=== PATIENT | female | born 1955 | race Caucasian/White ===

== ENCOUNTER 2022-01-08 14:01 | Inpatient (IN) | payer MEDICAID ==
[~2022-01-08] VITALS: Ht 152.4 cm; Wt 64.1 kg
[2022-01-08] MEDS ORDERED: SODIUM CHLORIDE 0.9% 1,000 ML IV ONE (14:15)
[2022-01-08 14:43] LABS: BASOPHILS % 0.5 % (0.0-2.0); EOSINOPHILS % 0.3 % (0.0-5.0); HEMATOCRIT. 36.7 % (36.0-48.0); HEMOGLOBIN. 11.6 g/dL (12.0-16.0); LYMPHOCYTES % 23.3 % (20.0-50.0); MEAN CORPUSCULAR VOLUME 91.6 fL (81.0-99.0); MEAN PLATELET VOLUME 8.5 fl (7.4-10.4); MONOCYTES % 9.8 % (2.0-8.0); NEUTROPHILS % 66.1 % (40.0-76.0); PLATELET 490 x1000/uL (130-400); RED BLOOD CELL COUNT 4.01 mill/uL (4.2-5.4); RED CELL DISTRIBUTION WIDTH 16.4 % (11.6-14.6)
[2022-01-08 14:45] LABS: BG BASE EXCESS -7.7 mmol/L (-2.0-2.0); BG CARBOXYHEMOGLOBIN 0.3 % (0.5-1.5); BG HCO3 ACT 15.6 mmol/L (22.0-26.0); BG OXYHEMOGLOBIN 95.7 % (94.0-97.0); BG PCO2 25.7 mmHg (35.0-45.0); BG PO2 88.5 mmHg (75.0-100.0); BG SAMPLE SITE RIGHT RADIAL; BG TOTAL HEMOGLOBIN 12.1 g/dL (12.0-18.0); BG VENT MODE ROOM AIR
[2022-01-08 14:49] LABS: CHLORIDE 98 mEq/L (98-107)
[2022-01-08 14:52] LABS: INR 1.1; PROTHROMBIN TIME 11.7 sec (9.6-11.0)
[2022-01-08 15:00] LABS: ETHANOL BLOOD < 10 mg/dL
[2022-01-08] MEDS ORDERED: INSULIN REGULAR (HUMULIN R) 300UNITS/3ML VIAL IV ONE (15:15)
[2022-01-08] MEDS ORDERED: INSULIN REGULAR (DRIP) 100 UNITS in SODIUM CHLORIDE 0.9% 99 ML IV ONE ×2 (15:15→16:30)
[2022-01-08] MEDS ORDERED: ASPIRIN 325MG EC TABLET PO ONE (16:15)
[2022-01-08 21:32] LABS: CHLORIDE 112 mEq/L (98-107)
[2022-01-08] MEDS ORDERED: INSULIN GLARGINE 100 UNITS/ML SUBCUT NR (23:03)
[2022-01-08] MEDS ORDERED: DEXTROSE 50% WATER 50ML SYRINGE IV PRN (23:15)
[2022-01-09 05:40] VITALS: BP 168/66
[2022-01-09] MEDS ORDERED: CLONIDINE 0.1MG TABLET PO PRN (06:45)
[2022-01-09] MEDS: INSULIN LISPRO (MEDIUM DOSE) 100 UNITS/ML SUBCUT SCH ×3 (06:58→21:24)
[2022-01-09] MEDS: BLOOD SUGAR DIAGNOSTIC STRIP TEST SCH ×4 (06:59→21:24)
[2022-01-09 08:23] VITALS: BP 98/63
[2022-01-09] MEDS: AMLODIPINE 10MG TABLET PO SCH (09:00)
[2022-01-09] MEDS ORDERED: LISINOPRIL 20MG TABLET PO SCH (09:00)
[2022-01-09 10:16] LABS: BASOPHILS % 0.5 % (0.0-2.0); HEMATOCRIT. 37.2 % (36.0-48.0); HEMOGLOBIN. 11.7 g/dL (12.0-16.0); MEAN CORPUSCULAR HEMOGLOBIN 29.7 pg (28.0-32.0); MEAN CORPUSCULAR VOLUME 94.2 fL (81.0-99.0); MEAN PLATELET VOLUME 9.5 fl (7.4-10.4); MONOCYTES % 8.8 % (2.0-8.0); NEUTROPHILS % 65.7 % (40.0-76.0); PLATELET 439 x1000/uL (130-400); RED BLOOD CELL COUNT 3.95 mill/uL (4.2-5.4); RED CELL DISTRIBUTION WIDTH 16.6 % (11.6-14.6)
[2022-01-09] MEDS: INSULIN GLARGINE 100 UNITS/ML SUBCUT SCH ×2 (10:19→21:23)
[2022-01-09 10:24] LABS: CHLORIDE 111 mEq/L (98-107)
[2022-01-09 10:30] VITALS: BP 98/63
[2022-01-09 10:33] LABS: HDL CHOLESTEROL 16 mg/dL (40-59); LDL CHOLESTEROL 156 mg/dL (5-100)
[2022-01-09] MEDS ORDERED: GABA300T26 PO (11:46)
[2022-01-09] MEDS ORDERED: FAMO20TA8 PO (11:47)
[2022-01-09] MEDS ORDERED: TOPUD PO (11:48)
[2022-01-09] MEDS ORDERED: BENA5TAB40 PO (11:49)
[2022-01-09] MEDS ORDERED: DOCU-150 PO (11:50)
[2022-01-09] MEDS ORDERED: FERR324T4 MT (11:52)
[2022-01-09 12:10] VITALS: BP 116/74
[2022-01-09] MEDS: ENOXAPARIN 40MG/0.4ML SYR SUBCUT SCH (13:00)
[2022-01-09] MEDS ORDERED: PNEUMOCOCCAL 23-VAL P-SAC VAC 0.5 ML IM ONE (15:00)
[2022-01-09 16:00] VITALS: BP 137/55
[2022-01-09] MEDS: SODIUM CHLORIDE 0.45% 1,000 ML IV SCH (16:12)
[2022-01-09 20:00] VITALS: BP 126/66
[2022-01-09] MEDS: ONDANSETRON HCL 4MG/2ML INJ IV PRN (22:03)
[2022-01-10] VITALS: BP 155/73
[2022-01-10] MEDS: HYDROCODONE/ACETAMINOPHEN 5/325MG TABLET PO PRN ×3 (00:31→20:27)
[2022-01-10 04:00] VITALS: BP 155/73
[2022-01-10] MEDS: SODIUM CHLORIDE 0.45% 1,000 ML IV SCH ×2 (05:18→17:03)
[2022-01-10] MEDS: BLOOD SUGAR DIAGNOSTIC STRIP TEST SCH ×4 (06:34→20:27)
[2022-01-10 07:03] LABS: CHLORIDE 110 mEq/L (98-107)
[2022-01-10] MEDS: INSULIN LISPRO (MEDIUM DOSE) 100 UNITS/ML SUBCUT SCH ×4 (07:50→20:29)
[2022-01-10 08:00] VITALS: BP 147/64
[2022-01-10] MEDS: AMLODIPINE 10MG TABLET PO SCH (08:45)
[2022-01-10] MEDS: ENOXAPARIN 40MG/0.4ML SYR SUBCUT SCH (08:45)
[2022-01-10] MEDS: ONDANSETRON HCL 4MG/2ML INJ IV PRN ×2 (08:45→21:54)
[2022-01-10] MEDS: INSULIN GLARGINE 100 UNITS/ML SUBCUT SCH ×2 (09:09→21:21)
[2022-01-10] MEDS ORDERED: LIP40 MT (11:01)
[2022-01-10] MEDS ORDERED: LANTUSUD SUBCUT (11:01)
[2022-01-10 12:00] VITALS: BP 136/43
[2022-01-10 14:32] LABS: TOTAL IRON BINDING CAPACITY 262 ug/dL (250-450)
[2022-01-10 16:00] VITALS: BP 111/53
[2022-01-10] MEDS: PANTOPRAZOLE SODIUM 40 MG/VIAL IV SCH (16:56)
[2022-01-10 17:56] LABS: FERRITIN 150 ng/mL (10-291)
[2022-01-10 20:00] VITALS: BP 104/46
[2022-01-10 20:47] LABS: FOLIC ACID (FOLATE) SERUM > 20.00 ng/mL (>5.38); VITAMIN B12 SERUM > 2000.0 pg/mL (211-911)
[2022-01-10] MEDS: CLOTRIMAZOLE 1% VAGINAL CREAM 45GM VG SCH (21:55)
[2022-01-11] VITALS: BP 121/45
[2022-01-11 04:00] VITALS: BP 111/53
[2022-01-11] MEDS: SODIUM CHLORIDE 0.45% 1,000 ML IV SCH ×2 (05:00→17:44)
[2022-01-11 06:43] LABS: BASOPHILS % 0.4 % (0.0-2.0); EOSINOPHILS % 2.7 % (0.0-5.0); HEMATOCRIT. 34.1 % (36.0-48.0); HEMOGLOBIN. 11.1 g/dL (12.0-16.0); MEAN CORPUSCULAR HEMOGLOBIN 29.6 pg (28.0-32.0); MEAN CORPUSCULAR VOLUME 91.5 fL (81.0-99.0); MEAN PLATELET VOLUME 8.6 fl (7.4-10.4); MONOCYTES % 8.2 % (2.0-8.0); NEUTROPHILS % 64.7 % (40.0-76.0); PLATELET 427 x1000/uL (130-400); RED BLOOD CELL COUNT 3.73 mill/uL (4.2-5.4); RED CELL DISTRIBUTION WIDTH 16.1 % (11.6-14.6)
[2022-01-11 07:12] LABS: CHLORIDE 111 mEq/L (98-107)
[2022-01-11 07:47] VITALS: BP 138/30
[2022-01-11] MEDS: INSULIN LISPRO (MEDIUM DOSE) 100 UNITS/ML SUBCUT SCH ×4 (07:47→21:00)
[2022-01-11] MEDS: BLOOD SUGAR DIAGNOSTIC STRIP TEST SCH ×4 (07:47→21:00)
[2022-01-11 08:01] LABS: CLARITY URINE TURBID (CLEAR); COLOR URINE YELLOW (YELLOW); KETONES URINE 4+ (NEGATIVE); LEUKOCYTE ESTERASE URINE 2+ (NEGATIVE); NITRITE URINE POSITIVE (NEGATIVE); OCCULT BLOOD URINE 1+ (NEGATIVE); PH URINE 5.5 (4.5-8.0); PROTEIN URINE 1+ (NEGATIVE); SPECIFIC GRAVITY URINE 1.027 (1.005-1.030)
[2022-01-11] MEDS: ONDANSETRON HCL 4MG/2ML INJ IV PRN ×2 (09:01→15:44)
[2022-01-11] MEDS: PANTOPRAZOLE SODIUM 40 MG/VIAL IV SCH (09:01)
[2022-01-11] MEDS: ENOXAPARIN 40MG/0.4ML SYR SUBCUT SCH (09:01)
[2022-01-11] MEDS: INSULIN GLARGINE 100 UNITS/ML SUBCUT SCH ×2 (09:02→22:12)
[2022-01-11] MEDS: HYDROCODONE/ACETAMINOPHEN 5/325MG TABLET PO PRN ×2 (09:02→17:43)
[2022-01-11] MEDS: AMLODIPINE 10MG TABLET PO SCH (09:02)
[2022-01-11] MEDS ORDERED: NALOXONE HCL 0.4MG/ML VIAL IV PRN (10:00)
[2022-01-11] MEDS ORDERED: CEFTRIAXONE 1 G PREMIX 50 ML IV SCH (11:15)
[2022-01-11 12:00] VITALS: BP 114/44
[2022-01-11] MEDS: KCL 20MEQ/100ML PREMIX 100 ML IV SCH ×2 (12:25→14:10)
[2022-01-11] MEDS: CEFTRIAXONE 1,000 MG in DEXTROSE 5% WATER 50 ML IV SCH (15:44)
[2022-01-11] MEDS: METOCLOPRAMIDE HCL 10MG/2ML VIAL IV SCH ×2 (15:44→17:42)
[2022-01-11 16:00] VITALS: BP 133/52
[2022-01-11] MEDS: ASCORBIC ACID 500 MG TABLET PO SCH (17:43)
[2022-01-11] MEDS: FERROUS SULFATE 325MG TABLET PO SCH (17:43)
[2022-01-11 20:00] VITALS: BP 123/49
[2022-01-11] MEDS: CLOTRIMAZOLE 1% VAGINAL CREAM 45GM VG SCH (22:10)
[2022-01-12] VITALS: BP 114/41
[2022-01-12] MEDS: METOCLOPRAMIDE HCL 10MG/2ML VIAL IV SCH ×4 (00:44→16:55)
[2022-01-12 04:00] VITALS: BP 126/48
[2022-01-12] MEDS: HYDROCODONE/ACETAMINOPHEN 5/325MG TABLET PO PRN ×3 (05:15→21:34)
[2022-01-12] MEDS: BLOOD SUGAR DIAGNOSTIC STRIP TEST SCH ×4 (06:21→21:23)
[2022-01-12 06:34] LABS: BASOPHILS % 0.4 % (0.0-2.0); HEMATOCRIT. 32.8 % (36.0-48.0); HEMOGLOBIN. 10.6 g/dL (12.0-16.0); LYMPHOCYTES % 30.7 % (20.0-50.0); MEAN CORPUSCULAR HEMOGLOBIN 29.5 pg (28.0-32.0); MEAN CORPUSCULAR VOLUME 91.7 fL (81.0-99.0); MEAN PLATELET VOLUME 8.5 fl (7.4-10.4); MONOCYTES % 7.6 % (2.0-8.0); NEUTROPHILS % 58.3 % (40.0-76.0); PLATELET 417 x1000/uL (130-400); RED BLOOD CELL COUNT 3.58 mill/uL (4.2-5.4)
[2022-01-12 06:58] LABS: CHLORIDE 111 mEq/L (98-107)
[2022-01-12] MEDS: SODIUM CHLORIDE 0.45% 1,000 ML IV SCH ×2 (07:33→21:00)
[2022-01-12] MEDS: INSULIN LISPRO (MEDIUM DOSE) 100 UNITS/ML SUBCUT SCH ×4 (07:34→21:00)
[2022-01-12 08:00] VITALS: BP 123/41
[2022-01-12] MEDS: PANTOPRAZOLE SODIUM 40 MG/VIAL IV SCH (09:00)
[2022-01-12] MEDS: FERROUS SULFATE 325MG TABLET PO SCH ×2 (10:42→16:55)
[2022-01-12] MEDS: ASCORBIC ACID 500 MG TABLET PO SCH ×2 (10:42→16:55)
[2022-01-12] MEDS: AMLODIPINE 10MG TABLET PO SCH (10:42)
[2022-01-12] MEDS: ENOXAPARIN 40MG/0.4ML SYR SUBCUT SCH (10:42)
[2022-01-12] MEDS: INSULIN GLARGINE 100 UNITS/ML SUBCUT SCH ×2 (10:44→21:33)
[2022-01-12] MEDS ORDERED: KCL 20MEQ/100ML PREMIX 100 ML IV NR ×2 (11:00→17:30)
[2022-01-12 12:00] VITALS: BP 114/44
[2022-01-12] MEDS: CEFTRIAXONE 1,000 MG in DEXTROSE 5% WATER 50 ML IV SCH (14:08)
[2022-01-12] MEDS: GUAIFENESIN 200MG TABLET PO PRN ×2 (14:08→21:24)
[2022-01-12 16:00] VITALS: BP 126/55
[2022-01-12 20:00] VITALS: BP 112/59
[2022-01-12] MEDS: CLOTRIMAZOLE 1% VAGINAL CREAM 45GM VG SCH (21:25)
[2022-01-13] VITALS: BP 128/53
[2022-01-13] MEDS: METOCLOPRAMIDE HCL 10MG/2ML VIAL IV SCH ×4 (00:57→17:30)
[2022-01-13 04:00] VITALS: BP 144/66
[2022-01-13] MEDS: BLOOD SUGAR DIAGNOSTIC STRIP TEST SCH ×4 (06:30→21:00)
[2022-01-13] MEDS: INSULIN LISPRO (MEDIUM DOSE) 100 UNITS/ML SUBCUT SCH ×4 (06:48→21:00)
[2022-01-13 08:06] LABS: BASOPHILS % 0.6 % (0.0-2.0); EOSINOPHILS % 2.6 % (0.0-5.0); HEMATOCRIT. 35.3 % (36.0-48.0); HEMOGLOBIN. 11.4 g/dL (12.0-16.0); LYMPHOCYTES % 31.7 % (20.0-50.0); MEAN CORPUSCULAR HEMOGLOBIN 29.9 pg (28.0-32.0); MEAN CORPUSCULAR VOLUME 92.6 fL (81.0-99.0); MEAN PLATELET VOLUME 8.6 fl (7.4-10.4); MONOCYTES % 7.5 % (2.0-8.0); NEUTROPHILS % 57.6 % (40.0-76.0); PLATELET 472 x1000/uL (130-400); RED BLOOD CELL COUNT 3.82 mill/uL (4.2-5.4); RED CELL DISTRIBUTION WIDTH 16.1 % (11.6-14.6)
[2022-01-13 08:19] LABS: CHLORIDE 110 mEq/L (98-107)
[2022-01-13 08:30] VITALS: BP 132/54
[2022-01-13] MEDS: ONDANSETRON HCL 4MG/2ML INJ IV PRN ×2 (08:57→12:45)
[2022-01-13] MEDS: PANTOPRAZOLE SODIUM 40 MG/VIAL IV SCH (08:58)
[2022-01-13] MEDS: HYDROCODONE/ACETAMINOPHEN 5/325MG TABLET PO PRN ×2 (08:58→17:35)
[2022-01-13] MEDS: ASCORBIC ACID 500 MG TABLET PO SCH ×2 (08:58→17:34)
[2022-01-13] MEDS: AMLODIPINE 10MG TABLET PO SCH (08:58)
[2022-01-13] MEDS: ENOXAPARIN 40MG/0.4ML SYR SUBCUT SCH (08:59)
[2022-01-13] MEDS: FERROUS SULFATE 325MG TABLET PO SCH ×2 (09:02→17:34)
[2022-01-13] MEDS: SODIUM CHLORIDE 0.45% 1,000 ML IV SCH ×2 (10:59→23:40)
[2022-01-13 11:54] VITALS: BP 123/41
[2022-01-13] MEDS: CEFTRIAXONE 1,000 MG in DEXTROSE 5% WATER 50 ML IV SCH (12:45)
[2022-01-13] MEDS: GUAIFENESIN 200MG TABLET PO PRN ×2 (13:13→17:34)
[2022-01-13 16:30] VITALS: BP 140/58
[2022-01-13 20:00] VITALS: BP 132/57
[2022-01-13] MEDS: INSULIN GLARGINE 100 UNITS/ML SUBCUT SCH (22:00)
[2022-01-13] MEDS: CLOTRIMAZOLE 1% VAGINAL CREAM 45GM VG SCH (22:19)
[2022-01-13] MEDS: NITROFURANTOIN 100MG M/M CAPSULE PO SCH (22:25)
[2022-01-13] MEDS: ACETAMINOPHEN 325MG TABLET PO PRN (23:03)
[2022-01-14 00:30] VITALS: BP 110/31
[2022-01-14 04:15] VITALS: BP 116/44
[2022-01-14] MEDS: ACETAMINOPHEN 325MG TABLET PO PRN (04:17)
[2022-01-14] MEDS: ONDANSETRON HCL 4MG TABLET PO PRN ×2 (04:27→13:10)
[2022-01-14] MEDS: METOCLOPRAMIDE HCL 10MG/2ML VIAL IV SCH ×4 (06:00→19:28)
[2022-01-14] MEDS: METOCLOPRAMIDE HCL 10MG TABLET PO PRN ×2 (06:33→21:15)
[2022-01-14] MEDS: BLOOD SUGAR DIAGNOSTIC STRIP TEST SCH ×4 (07:06→21:25)
[2022-01-14] MEDS: INSULIN LISPRO (MEDIUM DOSE) 100 UNITS/ML SUBCUT SCH ×2 (07:07→12:40)
[2022-01-14 07:24] LABS: BASOPHILS % 0.6 % (0.0-2.0); EOSINOPHILS % 0.9 % (0.0-5.0); HEMATOCRIT. 37.5 % (36.0-48.0); HEMOGLOBIN. 11.7 g/dL (12.0-16.0); LYMPHOCYTES % 23.2 % (20.0-50.0); MEAN CORPUSCULAR HEMOGLOBIN 29.7 pg (28.0-32.0); MEAN CORPUSCULAR VOLUME 95.6 fL (81.0-99.0); MEAN PLATELET VOLUME 8.4 fl (7.4-10.4); MONOCYTES % 6.9 % (2.0-8.0); NEUTROPHILS % 68.4 % (40.0-76.0); PLATELET 525 x1000/uL (130-400); RED BLOOD CELL COUNT 3.93 mill/uL (4.2-5.4); RED CELL DISTRIBUTION WIDTH 16.5 % (11.6-14.6)
[2022-01-14] MEDS ORDERED: GADOTERATE MEGLUMINE 5 MMOL/10 ML VIAL IV ONE (07:38)
[2022-01-14] MEDS: PANTOPRAZOLE SODIUM 40 MG/VIAL IV SCH (09:00)
[2022-01-14] MEDS: FERROUS SULFATE 325MG TABLET PO SCH ×2 (09:32→19:01)
[2022-01-14] MEDS: ASCORBIC ACID 500 MG TABLET PO SCH ×2 (09:32→19:02)
[2022-01-14] MEDS: ENOXAPARIN 40MG/0.4ML SYR SUBCUT SCH (09:32)
[2022-01-14] MEDS: AMLODIPINE 10MG TABLET PO SCH (09:34)
[2022-01-14] MEDS: NITROFURANTOIN 100MG M/M CAPSULE PO SCH ×2 (09:34→21:37)
[2022-01-14] MEDS: HYDROCODONE/ACETAMINOPHEN 5/325MG TABLET PO PRN ×3 (09:34→19:04)
[2022-01-14 11:30] LABS: CHLORIDE 104 mEq/L (98-107)
[2022-01-14] MEDS: SODIUM CHLORIDE 0.45% 1,000 ML IV SCH (12:54)
[2022-01-14] MEDS: INSULIN LISPRO 100 UNITS/ML SUBCUT SCH ×2 (17:50→21:17)
[2022-01-14 20:00] VITALS: BP 121/71
[2022-01-14] MEDS: CLOTRIMAZOLE 1% VAGINAL CREAM 45GM VG SCH (21:23)
[2022-01-14] MEDS: INSULIN GLARGINE 100 UNITS/ML SUBCUT SCH (21:42)
[2022-01-15 04:00] VITALS: BP_SYST 132; BP_SYST 133; BP_DIAS 57; BP_DIAS 60
[2022-01-15] MEDS: INSULIN LISPRO 100 UNITS/ML SUBCUT SCH ×4 (06:21→20:50)
[2022-01-15] MEDS: SODIUM CHLORIDE 0.45% 1,000 ML IV SCH ×2 (06:23→19:35)
[2022-01-15] MEDS: METOCLOPRAMIDE HCL 10MG/2ML VIAL IV SCH ×4 (06:33→19:00)
[2022-01-15] MEDS: BLOOD SUGAR DIAGNOSTIC STRIP TEST SCH ×4 (07:20→20:50)
[2022-01-15 08:00] VITALS: BP 124/51
[2022-01-15 08:19] LABS: BASOPHILS % 0.3 % (0.0-2.0); EOSINOPHILS % 0.3 % (0.0-5.0); HEMATOCRIT. 36.2 % (36.0-48.0); HEMOGLOBIN. 11.3 g/dL (12.0-16.0); LYMPHOCYTES % 15.1 % (20.0-50.0); MEAN CORPUSCULAR HEMOGLOBIN 29.3 pg (28.0-32.0); MEAN CORPUSCULAR VOLUME 93.5 fL (81.0-99.0); MEAN PLATELET VOLUME 8.2 fl (7.4-10.4); NEUTROPHILS % 78.3 % (40.0-76.0); PLATELET 470 x1000/uL (130-400); RED BLOOD CELL COUNT 3.87 mill/uL (4.2-5.4)
[2022-01-15 08:59] LABS: CHLORIDE 108 mEq/L (98-107)
[2022-01-15] MEDS: ASCORBIC ACID 500 MG TABLET PO SCH ×2 (09:06→19:00)
[2022-01-15] MEDS: NITROFURANTOIN 100MG M/M CAPSULE PO SCH ×2 (09:06→20:50)
[2022-01-15] MEDS: PANTOPRAZOLE SODIUM 40 MG/VIAL IV SCH (09:06)
[2022-01-15] MEDS: FERROUS SULFATE 325MG TABLET PO SCH ×2 (09:06→19:00)
[2022-01-15] MEDS: AMLODIPINE 10MG TABLET PO SCH (09:06)
[2022-01-15 12:00] VITALS: BP_SYST 117; BP_SYST 124; BP_DIAS 51; BP_DIAS 76
[2022-01-15] MEDS ORDERED: POTASSIUM CHLORIDE INJ 40 MEQ in DEXT 5% WATER 500 ML IV NR (14:30)
[2022-01-15 16:00] VITALS: BP 109/44
[2022-01-15 20:30] VITALS: BP 125/56
[2022-01-15] MEDS: CLOTRIMAZOLE 1% VAGINAL CREAM 45GM VG SCH (20:50)
[2022-01-15] MEDS: INSULIN GLARGINE 100 UNITS/ML SUBCUT SCH (22:00)
[2022-01-15] MEDS: GUAIFENESIN 200MG TABLET PO PRN (22:10)
[2022-01-15] MEDS: ONDANSETRON HCL 4MG TABLET PO PRN (22:11)
[2022-01-16] VITALS: BP 127/58
[2022-01-16] MEDS: METOCLOPRAMIDE HCL 10MG/2ML VIAL IV SCH ×4 (00:59→18:00)
[2022-01-16 03:56] VITALS: BP 128/60
[2022-01-16] MEDS: SODIUM CHLORIDE 0.45% 1,000 ML IV SCH ×2 (05:55→18:01)
[2022-01-16] MEDS: ACETAMINOPHEN 325MG TABLET PO PRN ×3 (06:40→21:28)
[2022-01-16] MEDS: FERROUS SULFATE 325MG TABLET PO SCH ×2 (06:41→18:01)
[2022-01-16] MEDS: ASCORBIC ACID 500 MG TABLET PO SCH ×2 (06:41→18:01)
[2022-01-16] MEDS: INSULIN LISPRO 100 UNITS/ML SUBCUT SCH ×4 (06:47→21:33)
[2022-01-16] MEDS: BLOOD SUGAR DIAGNOSTIC STRIP TEST SCH ×4 (06:54→21:34)
[2022-01-16 08:00] VITALS: BP 111/43
[2022-01-16 08:16] LABS: BASOPHILS % 0.6 % (0.0-2.0); EOSINOPHILS % 0.7 % (0.0-5.0); HEMATOCRIT. 36.6 % (36.0-48.0); HEMOGLOBIN. 11.8 g/dL (12.0-16.0); LYMPHOCYTES % 20.1 % (20.0-50.0); MEAN CORPUSCULAR HEMOGLOBIN 29.8 pg (28.0-32.0); MEAN CORPUSCULAR VOLUME 92.2 fL (81.0-99.0); MEAN PLATELET VOLUME 8.3 fl (7.4-10.4); MONOCYTES % 6.7 % (2.0-8.0); NEUTROPHILS % 71.9 % (40.0-76.0); PLATELET 522 x1000/uL (130-400); RED BLOOD CELL COUNT 3.97 mill/uL (4.2-5.4); RED CELL DISTRIBUTION WIDTH 16.5 % (11.6-14.6)
[2022-01-16 08:34] LABS: CHLORIDE 114 mEq/L (98-107)
[2022-01-16] MEDS: AMLODIPINE 10MG TABLET PO SCH (09:00)
[2022-01-16] MEDS: PANTOPRAZOLE SODIUM 40 MG/VIAL IV SCH (09:09)
[2022-01-16] MEDS: NITROFURANTOIN 100MG M/M CAPSULE PO SCH ×2 (09:09→21:28)
[2022-01-16 16:00] VITALS: BP 118/49
[2022-01-16] MEDS: METOCLOPRAMIDE HCL 10MG TABLET PO PRN (18:01)
[2022-01-16 20:00] VITALS: BP 119/72
[2022-01-16] MEDS: GUAIFENESIN 200MG TABLET PO PRN (21:28)
[2022-01-16] MEDS: INSULIN GLARGINE 100 UNITS/ML SUBCUT SCH (21:33)
[2022-01-16] MEDS: CLOTRIMAZOLE 1% VAGINAL CREAM 45GM VG SCH (21:34)
[2022-01-17] VITALS: BP 117/74
[2022-01-17] MEDS: METOCLOPRAMIDE HCL 10MG/2ML VIAL IV SCH ×4 (00:29→17:55)
[2022-01-17 04:00] VITALS: BP 99/61
[2022-01-17] MEDS: ACETAMINOPHEN 325MG TABLET PO PRN (05:39)
[2022-01-17] MEDS: FERROUS SULFATE 325MG TABLET PO SCH ×2 (05:40→17:55)
[2022-01-17] MEDS: ASCORBIC ACID 500 MG TABLET PO SCH ×2 (05:40→17:55)
[2022-01-17] MEDS: INSULIN LISPRO 100 UNITS/ML SUBCUT SCH ×4 (05:45→21:00)
[2022-01-17] MEDS: SODIUM CHLORIDE 0.45% 1,000 ML IV SCH ×2 (06:45→21:00)
[2022-01-17] MEDS: BLOOD SUGAR DIAGNOSTIC STRIP TEST SCH ×4 (06:45→21:23)
[2022-01-17 07:24] LABS: BASOPHILS % 0.6 % (0.0-2.0); EOSINOPHILS % 2.6 % (0.0-5.0); HEMATOCRIT. 36.2 % (36.0-48.0); HEMOGLOBIN. 11.2 g/dL (12.0-16.0); LYMPHOCYTES % 22.8 % (20.0-50.0); MEAN CORPUSCULAR HEMOGLOBIN 29.3 pg (28.0-32.0); MEAN CORPUSCULAR VOLUME 95.3 fL (81.0-99.0); MEAN PLATELET VOLUME 8.1 fl (7.4-10.4); MONOCYTES % 9.4 % (2.0-8.0); NEUTROPHILS % 64.6 % (40.0-76.0); PLATELET 491 x1000/uL (130-400); RED CELL DISTRIBUTION WIDTH 16.9 % (11.6-14.6)
[2022-01-17 08:00] VITALS: BP 116/42
[2022-01-17 09:50] LABS: CHLORIDE 112 mEq/L (98-107)
[2022-01-17] MEDS: NITROFURANTOIN 100MG M/M CAPSULE PO SCH ×2 (10:20→21:23)
[2022-01-17] MEDS: AMLODIPINE 10MG TABLET PO SCH (10:21)
[2022-01-17] MEDS: PANTOPRAZOLE SODIUM 40 MG/VIAL IV SCH (10:21)
[2022-01-17 12:00] VITALS: BP 122/48
[2022-01-17] MEDS ORDERED: POTASSIUM CHLORIDE INJ 60 MEQ in DEXT 5% WATER 500 ML IV SCH (12:00)
[2022-01-17 12:57] LABS: CHLORIDE 113 mEq/L (98-107)
[2022-01-17 16:00] VITALS: BP 131/39
[2022-01-17 20:00] VITALS: BP 99/56
[2022-01-17] MEDS ORDERED: POTASSIUM CHLORIDE 20MEQ/PACKET PO NR (20:45)
[2022-01-17] MEDS: INSULIN GLARGINE 100 UNITS/ML SUBCUT SCH (21:26)
[2022-01-17] MEDS: CLOTRIMAZOLE 1% VAGINAL CREAM 45GM VG SCH (21:31)
[2022-01-17 21:37] LABS: CHLORIDE 112 mEq/L (98-107)
[2022-01-17 23:48] LABS: BG BASE EXCESS -18.9 mmol/L (-2.0-2.0); BG CARBOXYHEMOGLOBIN 0.2 % (0.5-1.5); BG DEOXYHEMOGLOBIN 2.4 % (0.0-5.0); BG FRACTION INSPIRED OXYGEN 21; BG HCO3 ACT 7.9 mmol/L (22.0-26.0); BG METHEMOGLOBIN 0.3 % (0.0-1.5); BG OXYGEN SATURATION 97.6 % (92.0-98.5); BG OXYHEMOGLOBIN 97.1 % (94.0-97.0); BG PCO2 22.3 mmHg (35.0-45.0); BG PH 7.167 (7.350-7.450); BG PO2 99.3 mmHg (75.0-100.0); BG SAMPLE SITE LEFT RADIAL; BG TOTAL HEMOGLOBIN 12.2 g/dL (12.0-18.0); BG VENT MODE ROOM AIR
[2022-01-18] VITALS (59 sets, daily range): BP systolic 82–143; BP diastolic 39–90
[2022-01-18] MEDS: METOCLOPRAMIDE HCL 10MG/2ML VIAL IV SCH ×4 (00:02→17:50)
[2022-01-18] MEDS: SODIUM BICARBONATE 100 MEQ in DEXTROSE 5% WATER 1,000 ML IV SCH ×2 (01:24→12:00)
[2022-01-18] MEDS: BLOOD SUGAR DIAGNOSTIC STRIP TEST SCH ×8 (06:24→17:44)
[2022-01-18 09:46] LABS: CHLORIDE 113 mEq/L (98-107)
[2022-01-18] MEDS ORDERED: INSULIN REGULAR (DRIP) 100 UNITS in SODIUM CHLORIDE 0.9% 99 ML IV PRN ×3 (10:15)
[2022-01-18] MEDS: SODIUM CHLORIDE 0.45% 1,000 ML IV SCH (10:20)
[2022-01-18] MEDS ORDERED: INSULIN REGULAR 100U/100ML PMX 100 ML IV SCH (10:30)
[2022-01-18] MEDS ORDERED: INSULIN REGULAR (DRIP) 100 UNITS in SODIUM CHLORIDE 0.9% 100 ML IV SCH (10:30)
[2022-01-18] MEDS ORDERED: DEXTROSE 50% WATER 50ML SYRINGE IV PRN ×5 (10:30→17:00)
[2022-01-18 10:53] LABS: BASOPHILS % 0.7 % (0.0-2.0); EOSINOPHILS % 1.8 % (0.0-5.0); HEMATOCRIT. 36.6 % (36.0-48.0); HEMOGLOBIN. 11.7 g/dL (12.0-16.0); LYMPHOCYTES % 24.2 % (20.0-50.0); MEAN CORPUSCULAR VOLUME 90.7 fL (81.0-99.0); MEAN PLATELET VOLUME 8.2 fl (7.4-10.4); NEUTROPHILS % 64.3 % (40.0-76.0); PLATELET 532 x1000/uL (130-400); RED BLOOD CELL COUNT 4.04 mill/uL (4.2-5.4); RED CELL DISTRIBUTION WIDTH 16.8 % (11.6-14.6)
[2022-01-18] MEDS ORDERED: BLOOD SUGAR DIAGNOSTIC STRIP TEST SCH ×3 (11:00→17:00)
[2022-01-18] MEDS: NITROFURANTOIN 100MG M/M CAPSULE PO SCH ×2 (11:07→21:31)
[2022-01-18] MEDS: PANTOPRAZOLE SODIUM 40 MG/VIAL IV SCH (11:07)
[2022-01-18] MEDS: AMLODIPINE 10MG TABLET PO SCH (11:08)
[2022-01-18] MEDS: FERROUS SULFATE 325MG TABLET PO SCH ×2 (11:08→17:50)
[2022-01-18] MEDS: ASCORBIC ACID 500 MG TABLET PO SCH ×2 (11:08→17:50)
[2022-01-18] MEDS: DEXT 5%/0.45% NACL KCL 20MEQ/L 1,000 ML IV SCH ×2 (11:43→22:11)
[2022-01-18] MEDS: KCL 20MEQ/100ML X 2 FOR TOTAL KCL 40MEQ/200ML IV SCH ×2 (11:43→15:01)
[2022-01-18] MEDS ORDERED: SODIUM BICARBONATE 100 MEQ in DEXTROSE 5% WATER 1,000 ML IV SCH (12:00)
[2022-01-18] MEDS ORDERED: INSULIN LISPRO 100 UNITS/ML SUBCUT SCH ×2 (12:00→17:00)
[2022-01-18] MEDS: ONDANSETRON HCL 4MG/2ML INJ IV PRN (13:01)
[2022-01-18] MEDS: MORPHINE SULFATE 2 MG/ML CPJ (NOT FOR IM USE) IV PRN (15:05)
[2022-01-18 16:25] LABS: BG BASE EXCESS -10.2 mmol/L (-2.0-2.0); BG DEOXYHEMOGLOBIN 3.1 % (0.0-5.0); BG FRACTION INSPIRED OXYGEN 21; BG HCO3 ACT 13.8 mmol/L (22.0-26.0); BG METHEMOGLOBIN 0.3 % (0.0-1.5); BG OXYGEN SATURATION 96.9 % (92.0-98.5); BG OXYHEMOGLOBIN 96.6 % (94.0-97.0); BG PCO2 25.8 mmHg (35.0-45.0); BG PH 7.347 (7.350-7.450); BG PO2 86.3 mmHg (75.0-100.0); BG SAMPLE SITE RIGHT RADIAL; BG VENT MODE ROOM AIR
[2022-01-18 17:38] LABS: CHLORIDE 110 mEq/L (98-107)
[2022-01-18] MEDS: INSULIN LISPRO 100 UNITS/ML SUBCUT SCH (17:44)
[2022-01-18 18:00] LABS: PHOSPHORUS 0.5 mg/dL (2.5-4.9)
[2022-01-18] MEDS ORDERED: POTASSIUM CHLORIDE 20MEQ TABLET SR PO NR (18:15)
[2022-01-18] MEDS ORDERED: POTASSIUM PHOS,M-BASIC-D-BASIC 30 MMOL in DEXT 5% WATER 500 ML IV NR (19:00)
[2022-01-18] MEDS ORDERED: INSULIN GLARGINE 100 UNITS/ML SUBCUT SCH (22:00)
[2022-01-18] MEDS: INSULIN GLARGINE 100 UNITS/ML SUBCUT SCH (22:11)
[2022-01-18] MEDS: CLOTRIMAZOLE 1% VAGINAL CREAM 45GM VG SCH (22:53)
[2022-01-19] VITALS (60 sets, daily range): BP systolic 81–135; BP diastolic 23–75
[2022-01-19] MEDS: BLOOD SUGAR DIAGNOSTIC STRIP TEST SCH ×5 (00:19→23:31)
[2022-01-19] MEDS: METOCLOPRAMIDE HCL 10MG/2ML VIAL IV SCH ×4 (00:25→17:35)
[2022-01-19] MEDS: INSULIN LISPRO 100 UNITS/ML SUBCUT SCH ×5 (00:31→23:30)
[2022-01-19] MEDS: MORPHINE SULFATE 2 MG/ML CPJ (NOT FOR IM USE) IV PRN ×3 (00:32→19:28)
[2022-01-19 05:46] LABS: HEMOGLOBIN. 10.8 g/dL (12.0-16.0); MEAN CORPUSCULAR HEMOGLOBIN 29.3 pg (28.0-32.0); MEAN CORPUSCULAR VOLUME 89.5 fL (81.0-99.0); MEAN PLATELET VOLUME 7.7 fl (7.4-10.4); PLATELET 466 x1000/uL (130-400); RED BLOOD CELL COUNT 3.69 mill/uL (4.2-5.4); RED CELL DISTRIBUTION WIDTH 16.7 % (11.6-14.6)
[2022-01-19] MEDS: DEXT 5%/0.45% NACL KCL 20MEQ/L 1,000 ML IV SCH ×2 (05:50→21:56)
[2022-01-19 05:58] LABS: CHLORIDE 113 mEq/L (98-107)
[2022-01-19 06:19] LABS: PHOSPHORUS 2.5 mg/dL (2.5-4.9)
[2022-01-19] MEDS: FERROUS SULFATE 325MG TABLET PO SCH ×2 (07:00→17:00)
[2022-01-19] MEDS: ASCORBIC ACID 500 MG TABLET PO SCH ×2 (07:00→17:00)
[2022-01-19 07:44] LABS: PLATELET ESTIMATE INCREASED
[2022-01-19] MEDS ORDERED: POTASSIUM CHLORIDE 20MEQ TABLET SR PO NR (08:00)
[2022-01-19] MEDS: PANTOPRAZOLE SODIUM 40 MG/VIAL IV SCH (08:10)
[2022-01-19] MEDS: AMLODIPINE 10MG TABLET PO SCH (08:11)
[2022-01-19] MEDS ORDERED: POTASSIUM CHLORIDE INJ 40 MEQ in DEXT 5% WATER 250 ML IV ONE (09:30)
[2022-01-19] MEDS ORDERED: MAGNESIUM 4 G PREMIX 100 ML IV NR (10:00)
[2022-01-19] MEDS: KCL 20MEQ/100ML X 2 FOR TOTAL KCL 40MEQ/200ML IV SCH ×2 (11:27→14:21)
[2022-01-19] MEDS: ENOXAPARIN 40MG/0.4ML SYR SUBCUT SCH (11:28)
[2022-01-19] MEDS: ONDANSETRON HCL 4MG/2ML INJ IV PRN (18:20)
[2022-01-19 18:43] LABS: CHLORIDE 115 mEq/L (98-107)
[2022-01-19] MEDS: CLOTRIMAZOLE 1% VAGINAL CREAM 45GM VG SCH (21:56)
[2022-01-19] MEDS: INSULIN GLARGINE 100 UNITS/ML SUBCUT SCH (21:57)
[2022-01-19] MEDS: METOCLOPRAMIDE HCL 10MG TABLET PO PRN (23:30)
[2022-01-20] VITALS (48 sets, daily range): BP systolic 85–128; BP diastolic 34–91
[2022-01-20] MEDS: MORPHINE SULFATE 2 MG/ML CPJ (NOT FOR IM USE) IV PRN (01:04)
[2022-01-20] MEDS ORDERED: DIPHENHYDRAMINE 50MG/ML VIAL IV PRN (02:30)
[2022-01-20] MEDS: INSULIN LISPRO 100 UNITS/ML SUBCUT SCH ×3 (06:00→17:23)
[2022-01-20] MEDS: BLOOD SUGAR DIAGNOSTIC STRIP TEST SCH ×3 (06:00→17:23)
[2022-01-20 06:04] LABS: CHLORIDE 111 mEq/L (98-107)
[2022-01-20 06:06] LABS: HEMATOCRIT. 34.6 % (36.0-48.0); HEMOGLOBIN. 11.2 g/dL (12.0-16.0); MEAN CORPUSCULAR HEMOGLOBIN 28.9 pg (28.0-32.0); MEAN CORPUSCULAR VOLUME 89.3 fL (81.0-99.0); MEAN PLATELET VOLUME 8.2 fl (7.4-10.4); PLATELET 509 x1000/uL (130-400); RED BLOOD CELL COUNT 3.88 mill/uL (4.2-5.4)
[2022-01-20] MEDS: FERROUS SULFATE 325MG TABLET PO SCH ×2 (06:16→17:04)
[2022-01-20] MEDS: METOCLOPRAMIDE HCL 10MG/2ML VIAL IV SCH ×5 (06:16→23:07)
[2022-01-20] MEDS: ASCORBIC ACID 500 MG TABLET PO SCH ×2 (06:16→17:04)
[2022-01-20 06:17] LABS: PHOSPHORUS 2.1 mg/dL (2.5-4.9)
[2022-01-20] MEDS: AMLODIPINE 10MG TABLET PO SCH (08:36)
[2022-01-20] MEDS: PANTOPRAZOLE SODIUM 40 MG/VIAL IV SCH (08:36)
[2022-01-20] MEDS: ENOXAPARIN 40MG/0.4ML SYR SUBCUT SCH (08:36)
[2022-01-20] MEDS ORDERED: POTASSIUM CHLORIDE INJ 40 MEQ in DEXT 5% WATER 250 ML IV ONE (09:30)
[2022-01-20] MEDS ORDERED: POTASSIUM CHLORIDE 20MEQ/PACKET PO SCH (10:00)
[2022-01-20] MEDS: KCL 20MEQ/100ML X 2 FOR TOTAL KCL 40MEQ/200ML IV SCH ×2 (10:02→12:50)
[2022-01-20] MEDS ORDERED: POTASSIUM PHOS,M-BASIC-D-BASIC 10 MMOL in DEXT 5% WATER 246.6667 ML IV SCH (11:00)
[2022-01-20 12:17] LABS: PLATELET ESTIMATE INCREASED
[2022-01-20] MEDS: ACETAMINOPHEN 325MG TABLET PO PRN ×2 (12:55→17:04)
[2022-01-20] MEDS ORDERED: BISACODYL 10MG SUPP PR PRN (13:45)
[2022-01-20] MEDS ORDERED: BISACODYL 5MG TABLET PO PRN (13:45)
[2022-01-20] MEDS: DOCUSATE SODIUM 250MG CAPSULE PO SCH ×2 (13:52→23:07)
[2022-01-20] MEDS: GUAIFENESIN 200MG TABLET PO PRN (17:22)
[2022-01-20] MEDS: LACTULOSE 20G/30ML UDC PO SCH (21:30)
[2022-01-20] MEDS: INSULIN GLARGINE 100 UNITS/ML SUBCUT SCH (21:30)
[2022-01-20] MEDS: CLOTRIMAZOLE 1% VAGINAL CREAM 45GM VG SCH (21:31)
[2022-01-21] VITALS (21 sets, daily range): BP systolic 92–147; BP diastolic 43–63
[2022-01-21] MEDS: ACETAMINOPHEN 325MG TABLET PO PRN (01:52)
[2022-01-21] MEDS ORDERED: HYDROCODONE/APAP 7.5/325MG 1 TAB TABLET PO PRN (03:15)
[2022-01-21] MEDS: ONDANSETRON HCL 4MG/2ML INJ IV PRN ×2 (03:18→08:14)
[2022-01-21 05:07] LABS: BASOPHILS % 0.6 % (0.0-2.0); EOSINOPHILS % 2.4 % (0.0-5.0); HEMATOCRIT. 32.8 % (36.0-48.0); HEMOGLOBIN. 10.7 g/dL (12.0-16.0); LYMPHOCYTES % 31.8 % (20.0-50.0); MEAN CORPUSCULAR HEMOGLOBIN 29.2 pg (28.0-32.0); MEAN CORPUSCULAR VOLUME 89.8 fL (81.0-99.0); MEAN PLATELET VOLUME 9.1 fl (7.4-10.4); MONOCYTES % 14.8 % (2.0-8.0); NEUTROPHILS % 50.4 % (40.0-76.0); PLATELET 436 x1000/uL (130-400); RED BLOOD CELL COUNT 3.66 mill/uL (4.2-5.4); RED CELL DISTRIBUTION WIDTH 17.2 % (11.6-14.6)
[2022-01-21 05:17] LABS: CHLORIDE 110 mEq/L (98-107)
[2022-01-21] MEDS: FERROUS SULFATE 325MG TABLET PO SCH ×2 (06:21→17:18)
[2022-01-21] MEDS: INSULIN LISPRO 100 UNITS/ML SUBCUT SCH ×3 (06:21→17:08)
[2022-01-21] MEDS: ASCORBIC ACID 500 MG TABLET PO SCH ×2 (06:21→17:18)
[2022-01-21] MEDS: BLOOD SUGAR DIAGNOSTIC STRIP TEST SCH ×4 (06:21→21:36)
[2022-01-21] MEDS: METOCLOPRAMIDE HCL 10MG/2ML VIAL IV SCH ×3 (06:21→17:19)
[2022-01-21] MEDS: DEXT 5%/0.45% NACL KCL 20MEQ/L 1,000 ML IV SCH (06:22)
[2022-01-21] MEDS: INSULIN LISPRO (LOW DOSE) 100 UNITS/ML SUBCUT SCH ×3 (06:22→17:07)
[2022-01-21] MEDS ORDERED: INSULIN LISPRO 100 UNITS/ML SUBCUT SCH (06:30)
[2022-01-21] MEDS: ENOXAPARIN 40MG/0.4ML SYR SUBCUT SCH (08:14)
[2022-01-21] MEDS: PANTOPRAZOLE SODIUM 40 MG/VIAL IV SCH (08:14)
[2022-01-21] MEDS: AMLODIPINE 10MG TABLET PO SCH (08:14)
[2022-01-21] MEDS: DOCUSATE SODIUM 250MG CAPSULE PO SCH ×2 (08:14→16:56)
[2022-01-21] MEDS: MORPHINE SULFATE 2 MG/ML CPJ (NOT FOR IM USE) IV PRN (08:17)
[2022-01-21 08:49] LABS: PHOSPHORUS 2.3 mg/dL (2.5-4.9)
[2022-01-21] MEDS ORDERED: COSYNTROPIN 0.25MG/ML VIAL IV SCH (09:10)
[2022-01-21] MEDS ORDERED: KCL 20MEQ/100ML PREMIX 100 ML IV SCH (10:00)
[2022-01-21] MEDS ORDERED: POTASSIUM PHOS,M-BASIC-D-BASIC 10 MMOL in DEXT 5% WATER 246.6667 ML IV SCH (12:00)
[2022-01-21] MEDS: GABAPENTIN 100MG CAPSULE PO SCH ×2 (13:21→21:31)
[2022-01-21] MEDS ORDERED: METHOCARBAMOL 500MG TABLET PO PRN (14:00)
[2022-01-21] MEDS: LACTULOSE 20G/30ML UDC PO SCH (21:31)
[2022-01-21] MEDS: CLOTRIMAZOLE 1% VAGINAL CREAM 45GM VG SCH (21:31)
[2022-01-21] MEDS: INSULIN GLARGINE 100 UNITS/ML SUBCUT SCH (21:43)
[2022-01-22] VITALS: BP 102/47
[2022-01-22] MEDS: ACETAMINOPHEN 325MG TABLET PO PRN (01:23)
[2022-01-22] MEDS: METOCLOPRAMIDE HCL 10MG TABLET PO PRN ×3 (01:23→01:30)
[2022-01-22] MEDS: METOCLOPRAMIDE HCL 10MG/2ML VIAL IV SCH ×4 (01:35→17:35)
[2022-01-22] MEDS: ONDANSETRON HCL 4MG/2ML INJ IV PRN (03:21)
[2022-01-22 04:00] VITALS: BP 105/50
[2022-01-22] MEDS: INSULIN LISPRO 100 UNITS/ML SUBCUT SCH ×4 (06:45→17:38)
[2022-01-22] MEDS: BLOOD SUGAR DIAGNOSTIC STRIP TEST SCH ×4 (06:45→20:11)
[2022-01-22] MEDS: GABAPENTIN 100MG CAPSULE PO SCH ×3 (06:45→21:34)
[2022-01-22] MEDS: INSULIN LISPRO (LOW DOSE) 100 UNITS/ML SUBCUT SCH ×3 (06:46→17:36)
[2022-01-22 06:51] LABS: HEMATOCRIT. 31.7 % (36.0-48.0); HEMOGLOBIN. 10.4 g/dL (12.0-16.0); MEAN CORPUSCULAR HEMOGLOBIN 29.5 pg (28.0-32.0); MEAN CORPUSCULAR VOLUME 89.7 fL (81.0-99.0); MEAN PLATELET VOLUME 8.7 fl (7.4-10.4); PLATELET 421 x1000/uL (130-400); RED BLOOD CELL COUNT 3.54 mill/uL (4.2-5.4); RED CELL DISTRIBUTION WIDTH 17.2 % (11.6-14.6)
[2022-01-22 07:10] LABS: CHLORIDE 114 mEq/L (98-107)
[2022-01-22 07:14] LABS: PHOSPHORUS 3.9 mg/dL (2.5-4.9)
[2022-01-22 08:02] VITALS: BP 108/43
[2022-01-22] MEDS: PANTOPRAZOLE SODIUM 40 MG/VIAL IV SCH (08:55)
[2022-01-22] MEDS: ASCORBIC ACID 500 MG TABLET PO SCH (08:55)
[2022-01-22] MEDS: DOCUSATE SODIUM 250MG CAPSULE PO SCH ×2 (09:00→16:00)
[2022-01-22] MEDS: AMLODIPINE 10MG TABLET PO SCH (09:00)
[2022-01-22] MEDS: FERROUS SULFATE 325MG TABLET PO SCH (09:01)
[2022-01-22] MEDS: ENOXAPARIN 40MG/0.4ML SYR SUBCUT SCH (09:03)
[2022-01-22 10:04] LABS: NUCLEATED RED BLOOD CELLS 1 /100 WBC
[2022-01-22 10:05] LABS: PLATELET ESTIMATE SLIGHTLY INCREASED
[2022-01-22 12:00] VITALS: BP 104/53
[2022-01-22] MEDS ORDERED: POTASSIUM CHLORIDE 20MEQ TABLET SR PO SCH (12:00)
[2022-01-22] MEDS: DEXT 5%/0.45% NACL KCL 20MEQ/L 1,000 ML IV SCH (14:16)
[2022-01-22 16:19] VITALS: BP 112/54
[2022-01-22] MEDS ORDERED: DIPHENHYDRAMINE 50MG/ML VIAL IV PRN (17:00)
[2022-01-22] MEDS ORDERED: DEXT 5% WATER + KCL 40MEQ/L 1,000 ML IV SCH (17:00)
[2022-01-22] MEDS: POTASSIUM CHLORIDE INJ 40 MEQ in DEXTROSE 5% WATER 1,000 ML IV SCH (17:35)
[2022-01-22 20:00] VITALS: BP 103/55
[2022-01-22] MEDS: LACTULOSE 20G/30ML UDC PO SCH (20:10)
[2022-01-22] MEDS: CLOTRIMAZOLE 1% VAGINAL CREAM 45GM VG SCH (21:34)
[2022-01-22] MEDS: CALAMINE LOTION 120ML TOP SCH (21:35)
[2022-01-22] MEDS: INSULIN GLARGINE 100 UNITS/ML SUBCUT SCH (21:36)
[2022-01-23] VITALS: BP 101/46
[2022-01-23] MEDS: METOCLOPRAMIDE HCL 10MG/2ML VIAL IV SCH ×4 (00:06→17:47)
[2022-01-23] MEDS: TRAMADOL HCL/ACETAMINOPHEN 37.5/325MG TABLET PO PRN ×4 (00:20→20:43)
[2022-01-23 04:00] VITALS: BP 96/49
[2022-01-23] MEDS: GABAPENTIN 100MG CAPSULE PO SCH ×3 (06:09→20:43)
[2022-01-23] MEDS: CALAMINE LOTION 120ML TOP SCH ×3 (06:10→20:43)
[2022-01-23 06:56] LABS: CHLORIDE 110 mEq/L (98-107)
[2022-01-23] MEDS: BLOOD SUGAR DIAGNOSTIC STRIP TEST SCH ×4 (06:56→20:08)
[2022-01-23 07:01] LABS: PHOSPHORUS 3.4 mg/dL (2.5-4.9)
[2022-01-23 07:13] LABS: HEMATOCRIT. 31.2 % (36.0-48.0); HEMOGLOBIN. 10.1 g/dL (12.0-16.0); MEAN CORPUSCULAR HEMOGLOBIN 29.6 pg (28.0-32.0); MEAN CORPUSCULAR VOLUME 91.7 fL (81.0-99.0); MEAN PLATELET VOLUME 9.2 fl (7.4-10.4); PLATELET 346 x1000/uL (130-400); RED CELL DISTRIBUTION WIDTH 17.6 % (11.6-14.6)
[2022-01-23] MEDS: INSULIN LISPRO 100 UNITS/ML SUBCUT SCH ×6 (07:20→17:20)
[2022-01-23] MEDS: INSULIN LISPRO (LOW DOSE) 100 UNITS/ML SUBCUT SCH ×3 (07:20→17:47)
[2022-01-23 08:00] VITALS: BP 97/67
[2022-01-23] MEDS: DOCUSATE SODIUM 250MG CAPSULE PO SCH ×2 (08:40→17:00)
[2022-01-23] MEDS: PANTOPRAZOLE SODIUM 40 MG/VIAL IV SCH (08:40)
[2022-01-23] MEDS: AMLODIPINE 10MG TABLET PO SCH (08:40)
[2022-01-23] MEDS: ENOXAPARIN 40MG/0.4ML SYR SUBCUT SCH (08:40)
[2022-01-23 11:16] LABS: NUCLEATED RED BLOOD CELLS 2 /100 WBC
[2022-01-23 11:17] LABS: PLATELET ESTIMATE NORMAL
[2022-01-23 12:00] VITALS: BP 111/40
[2022-01-23 16:00] VITALS: BP 100/59
[2022-01-23 20:00] VITALS: BP 102/49
[2022-01-23] MEDS: LACTULOSE 20G/30ML UDC PO SCH (20:42)
[2022-01-23] MEDS: CLOTRIMAZOLE 1% VAGINAL CREAM 45GM VG SCH (20:43)
[2022-01-23] MEDS: INSULIN GLARGINE 100 UNITS/ML SUBCUT SCH (21:05)
[2022-01-24] VITALS: BP 107/63
[2022-01-24] MEDS: METOCLOPRAMIDE HCL 10MG/2ML VIAL IV SCH ×5 (00:28→23:48)
[2022-01-24] MEDS: POTASSIUM CHLORIDE INJ 40 MEQ in DEXTROSE 5% WATER 1,000 ML IV SCH (02:00)
[2022-01-24 04:00] VITALS: BP 102/53
[2022-01-24] MEDS: CALAMINE LOTION 120ML TOP SCH ×3 (06:08→21:36)
[2022-01-24] MEDS: GABAPENTIN 100MG CAPSULE PO SCH ×3 (06:09→21:25)
[2022-01-24] MEDS: BLOOD SUGAR DIAGNOSTIC STRIP TEST SCH ×4 (06:30→20:29)
[2022-01-24] MEDS: INSULIN LISPRO 100 UNITS/ML SUBCUT SCH ×6 (06:48→17:20)
[2022-01-24] MEDS: INSULIN LISPRO (LOW DOSE) 100 UNITS/ML SUBCUT SCH ×3 (06:49→18:09)
[2022-01-24 08:00] VITALS: BP 100/50
[2022-01-24] MEDS: AMLODIPINE 10MG TABLET PO SCH (08:18)
[2022-01-24] MEDS: DOCUSATE SODIUM 250MG CAPSULE PO SCH ×2 (09:27→18:07)
[2022-01-24] MEDS: PANTOPRAZOLE SODIUM 40 MG/VIAL IV SCH (09:27)
[2022-01-24] MEDS: ENOXAPARIN 40MG/0.4ML SYR SUBCUT SCH (09:27)
[2022-01-24 12:00] VITALS: BP 90/48
[2022-01-24] MEDS: TRAMADOL HCL/ACETAMINOPHEN 37.5/325MG TABLET PO PRN ×2 (13:12→21:25)
[2022-01-24] MEDS ORDERED: SODIUM CHLORIDE 0.9% 500 ML IV ONE (13:45)
[2022-01-24 16:00] VITALS: BP 105/42
[2022-01-24] MEDS: MIDODRINE HCL 5MG TABLET PO SCH (18:07)
[2022-01-24 20:00] VITALS: BP 95/54
[2022-01-24] MEDS: LACTULOSE 20G/30ML UDC PO SCH (20:29)
[2022-01-24] MEDS: CLOTRIMAZOLE 1% VAGINAL CREAM 45GM VG SCH (21:36)
[2022-01-24] MEDS: INSULIN GLARGINE 100 UNITS/ML SUBCUT SCH (21:42)
[2022-01-25] VITALS: BP 99/43
[2022-01-25 04:00] VITALS: BP 100/46
[2022-01-25] MEDS: CALAMINE LOTION 120ML TOP SCH ×3 (05:24→21:15)
[2022-01-25] MEDS: METOCLOPRAMIDE HCL 10MG/2ML VIAL IV SCH ×3 (05:24→17:39)
[2022-01-25] MEDS: GABAPENTIN 100MG CAPSULE PO SCH ×3 (05:24→21:16)
[2022-01-25] MEDS: BLOOD SUGAR DIAGNOSTIC STRIP TEST SCH ×4 (06:20→20:48)
[2022-01-25] MEDS: INSULIN LISPRO (LOW DOSE) 100 UNITS/ML SUBCUT SCH ×3 (06:21→18:00)
[2022-01-25] MEDS: INSULIN LISPRO 100 UNITS/ML SUBCUT SCH ×6 (06:54→17:20)
[2022-01-25 08:00] VITALS: BP 112/43
[2022-01-25] MEDS: MIDODRINE HCL 5MG TABLET PO SCH ×2 (09:10→17:39)
[2022-01-25] MEDS: ENOXAPARIN 40MG/0.4ML SYR SUBCUT SCH (09:10)
[2022-01-25] MEDS: AMLODIPINE 10MG TABLET PO SCH (09:11)
[2022-01-25] MEDS: PANTOPRAZOLE SODIUM 40 MG/VIAL IV SCH (09:11)
[2022-01-25] MEDS: DOCUSATE SODIUM 250MG CAPSULE PO SCH ×2 (09:12→17:32)
[2022-01-25] MEDS: ONDANSETRON HCL 4MG/2ML INJ IV PRN (10:45)
[2022-01-25 11:44] LABS: HEMATOCRIT. 33.7 % (36.0-48.0); HEMOGLOBIN. 10.3 g/dL (12.0-16.0); MEAN CORPUSCULAR HEMOGLOBIN 29.7 pg (28.0-32.0); MEAN CORPUSCULAR VOLUME 97.4 fL (81.0-99.0); RED BLOOD CELL COUNT 3.46 mill/uL (4.2-5.4); RED CELL DISTRIBUTION WIDTH 19.2 % (11.6-14.6)
[2022-01-25 11:46] LABS: CHLORIDE 112 mEq/L (98-107)
[2022-01-25 12:00] VITALS: BP 104/46
[2022-01-25 14:33] LABS: PLATELET ESTIMATE NORMAL
[2022-01-25] MEDS: POTASSIUM CHLORIDE INJ 40 MEQ in DEXTROSE 5% WATER 1,000 ML IV SCH (14:53)
[2022-01-25 16:00] VITALS: BP 102/45
[2022-01-25 20:00] VITALS: BP 97/39
[2022-01-25] MEDS: LACTULOSE 20G/30ML UDC PO SCH (21:14)
[2022-01-25] MEDS: GUAIFENESIN 200MG TABLET PO PRN (21:15)
[2022-01-25] MEDS: CLOTRIMAZOLE 1% VAGINAL CREAM 45GM VG SCH (21:15)
[2022-01-25] MEDS: TRAMADOL HCL/ACETAMINOPHEN 37.5/325MG TABLET PO PRN (21:15)
[2022-01-25] MEDS: INSULIN GLARGINE 100 UNITS/ML SUBCUT SCH (21:20)
[2022-01-26] VITALS: BP 101/47
[2022-01-26] MEDS: METOCLOPRAMIDE HCL 10MG/2ML VIAL IV SCH ×3 (00:12→12:28)
[2022-01-26 04:00] VITALS: BP 97/39
[2022-01-26] MEDS: CALAMINE LOTION 120ML TOP SCH ×2 (06:26→14:00)
[2022-01-26] MEDS: GABAPENTIN 100MG CAPSULE PO SCH ×2 (06:27→14:00)
[2022-01-26 06:45] LABS: HEMATOCRIT. 29.9 % (36.0-48.0); HEMOGLOBIN. 9.9 g/dL (12.0-16.0); MEAN CORPUSCULAR HEMOGLOBIN 30.1 pg (28.0-32.0); MEAN CORPUSCULAR VOLUME 91.6 fL (81.0-99.0); MEAN PLATELET VOLUME 10.2 fl (7.4-10.4); PLATELET 131 x1000/uL (130-400); RED BLOOD CELL COUNT 3.27 mill/uL (4.2-5.4)
[2022-01-26 06:53] LABS: CHLORIDE 109 mEq/L (98-107)
[2022-01-26] MEDS: INSULIN LISPRO (LOW DOSE) 100 UNITS/ML SUBCUT SCH ×2 (07:02→14:08)
[2022-01-26] MEDS: BLOOD SUGAR DIAGNOSTIC STRIP TEST SCH ×2 (07:02→12:20)
[2022-01-26] MEDS: INSULIN LISPRO 100 UNITS/ML SUBCUT SCH ×2 (07:02→14:09)
[2022-01-26 08:00] VITALS: BP 99/41
[2022-01-26] MEDS: AMLODIPINE 10MG TABLET PO SCH (08:31)
[2022-01-26] MEDS: PANTOPRAZOLE SODIUM 40 MG/VIAL IV SCH (09:37)
[2022-01-26] MEDS: MIDODRINE HCL 5MG TABLET PO SCH (09:38)
[2022-01-26] MEDS: ENOXAPARIN 40MG/0.4ML SYR SUBCUT SCH (09:38)
[2022-01-26] MEDS: DOCUSATE SODIUM 250MG CAPSULE PO SCH (09:38)
[2022-01-26] MEDS: TRAMADOL HCL/ACETAMINOPHEN 37.5/325MG TABLET PO PRN (09:39)
[2022-01-26 10:55] LABS: PLATELET ESTIMATE NORMAL
[2022-01-26 12:00] VITALS: BP 128/53
[2022-01-26] MEDS: ONDANSETRON HCL 4MG TABLET PO PRN (12:28)
[2022-01-26 12:39] VITALS: BP 128/53
== END 2022-01-26 14:51 | DRG 48 ==
LOC: ER 14:01 → MICUSO 18:23 → EDBEDREQTM 18:32 → EDBEDREQ 18:32 → EDBEDREQSVC 18:53 → EDBEDREQTM 22:59 → 6WST 01-09 05:35 → MICUNO 01-18 08:45 → 6WST 01-21 14:52
PROVIDERS: ADMIT Internal Medicine; ATTEND Internal Medicine
PROC: 02HV33Z Insertion of Infusion Device into Superior Vena Cava, Percutaneous Approach (ICD-10-PCS; principal; 2022-01-18)
PROC: B548ZZA Ultrasonography of Superior Vena Cava, Guidance (ICD-10-PCS; 2022-01-18)
DX: E11.43 Type 2 diabetes mellitus with diabetic autonomic (poly)neuropathy (principal); E43 Unspecified severe protein-calorie malnutrition; E27.49 Other adrenocortical insufficiency; E83.39 Other disorders of phosphorus metabolism; E87.0 Hyperosmolality and hypernatremia; K76.0 Fatty (change of) liver, not elsewhere classified; I95.9 Hypotension, unspecified; E11.10 Type 2 diabetes mellitus with ketoacidosis without coma; N39.0 Urinary tract infection, site not specified; K31.84 Gastroparesis; E87.6 Hypokalemia; I10 Essential (primary) hypertension; M48.061 Spinal stenosis, lumbar region without neurogenic claudication; Z91.19 Patient's noncompliance with other medical treatment and regimen; B96.1 Klebsiella pneumoniae [K. pneumoniae] as the cause of diseases classified elsewhere; D64.9 Anemia, unspecified; E78.5 Hyperlipidemia, unspecified; E83.42 Hypomagnesemia; J45.909 Unspecified asthma, uncomplicated; Z16.12 Extended spectrum beta lactamase (ESBL) resistance; M47.897 Other spondylosis, lumbosacral region; Z20.822 Contact with and (suspected) exposure to COVID-19; M43.16 Spondylolisthesis, lumbar region; M51.16 Intervertebral disc disorders with radiculopathy, lumbar region; M47.26 Other spondylosis with radiculopathy, lumbar region; L29.9 Pruritus, unspecified; Z91.14 Patient's other noncompliance with medication regimen; Z79.4 Long term (current) use of insulin; Z79.899 Other long term (current) drug therapy; Z82.49 Family history of ischemic heart disease and other diseases of the circulatory system; Z83.3 Family history of diabetes mellitus; Z68.27 Body mass index [BMI] 27.0-27.9, adult; D18.09 Hemangioma of other sites
CPT/HCPCS: 36415; 36573; 36600; 71045; 72148; 74018; 74176; 80048; 80053; 80061; 80320; 81003; 82010; 82024; 82088; 82375; 82533; 82607; 82728; 82746; 82805; 82962; 83036; 83519; 83540; 83550; 83605; 83735; 84100; 84132; 84134; 84145; 84439; 84443; 84484; 84681; 85025; 85044; 85651; 87077; 87186; 87426; 93005; 97116; 97161; 97162; 97164; 97530; 99291; A9577; C1725; C1769; C9113; C9803; J0696; J0834; J1200; J1650; J1815; J2270; J2405; J2765; J3475; J3480; J3490; J7030; J7050; J7060; J7070; J8597; Q0162; G0480